=== PATIENT | male | born 1970 | race Caucasian/White ===

== ENCOUNTER 2018-03-09 11:06 | Emergency (ER) | payer OTHER, MEDICAID ==
[2018-03-09] MEDS ORDERED: ACETAMINOPHEN 500 MG TAB PO (14:22)
== END 2018-03-09 11:19 | disposition home or self-care (01) ==
LOC: E/R 11:06
DX: K08.89 Other specified disorders of teeth and supporting structures (principal); F17.200 Nicotine dependence, unspecified, uncomplicated; F15.10 Other stimulant abuse, uncomplicated
CPT/HCPCS: 99283; Z7502